=== PATIENT | male | born 1990 | race Asian ===

== ENCOUNTER 2024-06-23 12:31 | Inpatient (IN) | payer MEDICAID, OTHER ==
[~2024-06-23] VITALS: Ht 172.7 cm; Wt 86.2 kg
[2024-06-23 14:03] LABS: BASOPHILS % 0.7 % (0.0-2.0); EOSINOPHILS % 0.7 % (0.0-5.0); HEMATOCRIT. 43.6 % (42.0-52.0); HEMOGLOBIN. 14.4 g/dL (14.0-18.0); LYMPHOCYTES % 19.6 % (20.0-50.0); MEAN CORPUSCULAR HEMOGLOBIN 31.7 pg (28.0-32.0); MEAN CORPUSCULAR HGB CONC 33.1 g/dL (31.0-37.0); MEAN CORPUSCULAR VOLUME 95.9 fL (80.0-94.0); MEAN PLATELET VOLUME 8.9 fl (7.4-10.4); MONOCYTES % 11.5 % (2.0-8.0); NEUTROPHILS % 67.5 % (40.0-76.0); PLATELET 338 x1000/uL (130-400); RED BLOOD CELL COUNT 4.54 mill/uL (4.7-6.1); RED CELL DISTRIBUTION WIDTH 14.5 % (11.6-14.6); WHITE BLOOD COUNT 12.7 x1000/uL (4.5-11.0)
[2024-06-23 14:10] LABS: CHLORIDE 101 mEq/L (98-107); SODIUM 140 mEq/L (136-145)
[2024-06-23 14:11] LABS: CALCIUM 9.5 mg/dL (8.7-10.4); CARBON DIOXIDE 30 mEq/L (21-32)
[2024-06-23 14:16] LABS: CREATININE 1.1 mg/dL (0.6-1.3); GLUCOSE 109 mg/dL (70-105); UREA NITROGEN BLOOD 21 mg/dL (9-23)
[2024-06-23] MEDS ORDERED: VANCOMYCIN 1.5GM/250ML 250 ML IV STA (14:32)
[2024-06-23] MEDS: PIPERACILLIN/TAZO 3.375G/50ML 50 ML IV STA (14:32)
[2024-06-23] MEDS: VANCOMYCIN 1.5GM/250ML IV NR (16:28)
[2024-06-23 17:30] VITALS: BP 127/80; PULSE 75; RESP 18; TEMP 36.7; O2SAT 98
[2024-06-23 18:17] VITALS: BP 127/80; PULSE 74; RESP 18; TEMP 36.8
[2024-06-23] MEDS ORDERED: ACETAMINOPHEN 325MG TABLET PO PRN (23:15)
[2024-06-23] MEDS ORDERED: IOHEXOL-300 100 ML BOTTLE ONE (23:22)
[2024-06-24] MEDS: PANTOPRAZOLE 40MG DR TABLET PO NR (00:24)
[2024-06-24] MEDS: SODIUM CHLORIDE 0.45% 1,000 ML IV SCH (00:25)
[2024-06-24] MEDS: PIPERACILLIN/TAZO 3.375G/50ML 50 ML IV SCH (00:26)
[2024-06-24 04:00] VITALS: BP 105/60; PULSE 61; RESP 18; TEMP 36.6; O2SAT 97
[2024-06-24] MEDS: VANCOMYCIN 1G PREMIX 200 ML IV SCH (05:18)
[2024-06-24 08:00] VITALS: BP 106/66; PULSE 55; RESP 16; TEMP 35.5; O2SAT 97
[2024-06-24 11:45] LABS: BASOPHILS % 0.3 % (0.0-2.0); HEMATOCRIT. 48.3 % (42.0-52.0); HEMOGLOBIN. 15.9 g/dL (14.0-18.0); LYMPHOCYTES % 10.3 % (20.0-50.0); MEAN CORPUSCULAR HEMOGLOBIN 31.2 pg (28.0-32.0); MEAN CORPUSCULAR HGB CONC 32.8 g/dL (31.0-37.0); MEAN CORPUSCULAR VOLUME 95.2 fL (80.0-94.0); MEAN PLATELET VOLUME 8.9 fl (7.4-10.4); MONOCYTES % 8.3 % (2.0-8.0); NEUTROPHILS % 80.1 % (40.0-76.0); PLATELET 337 x1000/uL (130-400); RED BLOOD CELL COUNT 5.07 mill/uL (4.7-6.1); RED CELL DISTRIBUTION WIDTH 14.4 % (11.6-14.6); WHITE BLOOD COUNT 14.5 x1000/uL (4.5-11.0)
[2024-06-24 11:49] LABS: CARBON DIOXIDE 29 mEq/L (21-32); CHLORIDE 101 mEq/L (98-107); SODIUM 139 mEq/L (136-145)
[2024-06-24 11:54] LABS: GLUCOSE 104 mg/dL (70-105)
[2024-06-24 11:55] LABS: UREA NITROGEN BLOOD 13 mg/dL (9-23)
[2024-06-24 12:00] VITALS: BP 102/62; PULSE 70; RESP 16; TEMP 36.1; O2SAT 97
[2024-06-24] MEDS: MORPHINE SULFATE 2 MG/ML INJ (NOT FOR IM USE) IV SCH (14:01)
[2024-06-24 16:00] VITALS: BP 102/62; PULSE 75; RESP 18; O2SAT 96
[2024-06-24] MEDS ORDERED: VANCOMYCIN 1G PREMIX 200 ML IV SCH (18:00)
[2024-06-24 18:06] VITALS: BP 102/62; PULSE 75; TEMP 100.2; O2SAT 96
[2024-06-24 18:15] VITALS: BP 102/62; PULSE 75; RESP 18; TEMP 37.9; O2SAT 96
== END 2024-06-24 18:18 | disposition home or self-care (01) | DRG 728 ==
LOC: ER 12:31 → 8EST 15:51 → EDBEDREQ 16:04 → EDBEDREQTM 16:04
PROVIDERS: ADMIT Internal Medicine; ATTEND Internal Medicine
DX: N47.2 Paraphimosis (principal); N48.89 Other specified disorders of penis
CPT/HCPCS: 36415; 72193; 80048; 84145; 85025; 99285; J2270; J2543; J3370; Q9967